=== PATIENT | male | born 1985 | race Caucasian/White ===

== ENCOUNTER 2017-09-10 14:07 | Emergency (ER) | payer OTHER ==
[~2017-09-10] VITALS: Ht 180.3 cm; Wt 97.5 kg
[~2017-09-10 14:07] MED LIST: HYDROCODONE-AP1 EAC6 PO; IBUPROFEN 800800 M1 PO; PENICILLIN V P500 MG PO
[2017-09-10 14:34] VITALS: BP 123/82
== END 2017-09-10 14:36 | disposition home or self-care (01) ==
LOC: M.ERS 14:07
DX: R22.0 Localized swelling, mass and lump, head (principal); T63.441A Toxic effect of venom of bees, accidental (unintentional), initial encounter; Y92.89 Other specified places as the place of occurrence of the external cause

== ENCOUNTER 2017-12-14 20:55 | Emergency (ER) | payer OTHER ==
[~2017-12-14] VITALS: Ht 180.3 cm; Wt 90.7 kg
[2017-12-14 20:58] VITALS: BP 143/81
[2017-12-14] MEDS ORDERED: ERYTHROMYCIN E3.5 G2 OPHTHALMIC (21:14)
== END 2017-12-14 21:26 | disposition home or self-care (01) ==
LOC: M.ERS 20:55
DX: H11.32 Conjunctival hemorrhage, left eye (principal); S05.02XA Injury of conjunctiva and corneal abrasion without foreign body, left eye, initial encounter; W22.8XXA Striking against or struck by other objects, initial encounter; Y93.89 Activity, other specified; Y92.89 Other specified places as the place of occurrence of the external cause; Y99.8 Other external cause status

== ENCOUNTER 2018-05-08 07:17 | Emergency (ER) | payer OTHER ==
[~2018-05-08] VITALS: Ht 348 cm; Wt 102.1 kg
[~2018-05-08 07:17] MED LIST changes: +ERYTHROMYCIN E3.5 G2 OPHTHALMIC
[2018-05-08] MEDS ORDERED: CYCLOBENZAPRINE5 MG PO (07:53)
[2018-05-08] MEDS ORDERED: HYDROCODON-ACE1 EAC7 PO (07:53)
[2018-05-08] MEDS ORDERED: NAPROSYN500 MG PO (07:53)
[2018-05-08 08:05] VITALS: BP 138/97
== END 2018-05-08 08:06 | disposition home or self-care (01) ==
LOC: M.ERS 07:17
DX: M94.0 Chondrocostal junction syndrome [Tietze] (principal)

== ENCOUNTER 2018-07-29 19:48 | Emergency (ER) | payer OTHER ==
[~2018-07-29] VITALS: Ht 182.9 cm; Wt 97.5 kg
[~2018-07-29 19:48] MED LIST changes: +CYCLOBENZAPRINE5 MG PO; +HYDROCODON-ACE1 EAC7 PO; +NAPROSYN500 MG PO
[2018-07-29] MEDS ORDERED: KEFLEX500 M1 PO (20:23)
[2018-07-29 20:29] VITALS: BP 119/76
== END 2018-07-29 20:32 | disposition home or self-care (01) ==
LOC: M.ERS 19:48
DX: S30.860A Insect bite (nonvenomous) of lower back and pelvis, initial encounter (principal); F17.200 Nicotine dependence, unspecified, uncomplicated; W57.XXXA Bitten or stung by nonvenomous insect and other nonvenomous arthropods, initial encounter; Y92.89 Other specified places as the place of occurrence of the external cause; Y93.89 Activity, other specified; Y99.8 Other external cause status

== ENCOUNTER 2018-12-09 00:59 | Emergency (ER) | payer OTHER ==
[~2018-12-09] VITALS: Ht 180.3 cm; Wt 99.8 kg
[~2018-12-09 00:59] MED LIST changes: +KEFLEX500 M1 PO
[2018-12-09] MEDS ORDERED: IBUPROFEN 800800 MG PO (02:18)
[2018-12-09] MEDS ORDERED: TYLENOL WITH CO1 TA1 PO (02:18)
[2018-12-09] MEDS ORDERED: PENICILLIN V P500 MG PO (02:18)
[2018-12-09 02:26] VITALS: BP 142/76
== END 2018-12-09 02:26 | disposition home or self-care (01) ==
LOC: M.ERS 00:59
DX: S02.5XXA Fracture of tooth (traumatic), initial encounter for closed fracture (principal); X58.XXXA Exposure to other specified factors, initial encounter; Y93.9 Activity, unspecified; Y92.89 Other specified places as the place of occurrence of the external cause; Y99.8 Other external cause status

== ENCOUNTER 2019-01-06 21:29 | Emergency (ER) | payer OTHER ==
[~2019-01-06] VITALS: Ht 180.3 cm; Wt 95.3 kg
[~2019-01-06 21:29] MED LIST changes: +IBUPROFEN 800800 MG PO; +TYLENOL WITH CO1 TA1 PO
[2019-01-06 22:01] LABS: ABSOLUTE EOSINOPHILS 0.2 thou/uL (0.0-0.7); ABSOLUTE LYMPHOCYTES 3.5 thou/uL (0.8-5.3); ABSOLUTE MONOCYTES 0.9 thou/uL (0.0-1.2); ABSOLUTE NEUTROPHILS 6.4 thou/uL (1.6-8.1); BASOPHILS 0.1 %; EOSINOPHILS 1.8 %; HEMOGLOBIN 16.1 gm/dL (14.0-18.0); LYMPHOCYTES 31.4 %; MCH 31.2 pg (26.0-34.0); MCHC 35.1 g/dL (28.0-37.0); MCV 89.1 fL (80.0-100.0); MONOCYTES 8.2 %; MPV 8.4 fl. (7.2-11.1); NUCLEATED RBCS 0 /100WBC; PLATELET COUNT* 281 thou/uL (150-400); POLYS 58.5 %; RBC 5.16 mil/uL (4.50-6.00); RDW-CV 13.5 % (10.5-14.5)
[2019-01-06 22:07] LABS: CALCIUM 8.8 mg/dL (8.5-10.1); POTASSIUM 4.1 mmol/L (3.5-5.1)
[2019-01-06 22:11] LABS: TOTAL BILIRUBIN 0.3 mg/dL (<0.1-1.0); TOTAL PROTEIN 7.6 g/dL (6.4-8.2)
[2019-01-06] MEDS ORDERED: MOTION RELIEF25 MG PO (22:36)
[2019-01-06 22:43] VITALS: BP 150/93
--- NOTE | 2019-01-07 09:55 | EKG ---
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[place] : 1985 Requested By: Tamica Jules Order Number: [id number] MD: Rashad Aguilera Measurements Intervals Cobb Rate: 83 P: 41 MT: 143 QRS: 38 QRSD: 109 T: 26 QT: 409 QTc: 481 Interpretive Statements Sinus rhythm Borderline prolonged QT interval Baseline wander in lead(s) V6 No previous ECG available for comparison Electronically Signed On 01-07-2019 9:55:20 EATING DISORDER PSYCHOLOGIST by Rashad Aguilera [email or web address] <ELECTRONICALLY SIGNED> By: Rashad Aguilera MD, [facility] 01/07/19 0955 [id number] 08 Rashad Aguilera MD, FACC /EPI
== END 2019-01-06 22:45 | disposition home or self-care (01) ==
LOC: M.ERS 21:29
PROVIDERS: Nurse Practitioner Family
DX: S06.0X0A Concussion without loss of consciousness, initial encounter (principal); Y04.2XXA Assault by strike against or bumped into by another person, initial encounter; Y92.89 Other specified places as the place of occurrence of the external cause; Y93.89 Activity, other specified; Y99.8 Other external cause status

== ENCOUNTER 2019-03-29 11:15 | Emergency (ER) | payer OTHER ==
[~2019-03-29] VITALS: Ht 180.3 cm; Wt 99.8 kg
[~2019-03-29 11:15] MED LIST changes: +MOTION RELIEF25 MG PO
[2019-03-29 11:49] VITALS: BP 119/89
== END 2019-03-29 11:50 | disposition home or self-care (01) ==
LOC: M.ERS 11:15
DX: F07.81 Postconcussional syndrome (principal)

== ENCOUNTER 2019-10-08 14:35 | Emergency (ER) | payer OTHER ==
[~2019-10-08] VITALS: Ht 180.3 cm; Wt 97.5 kg
[2019-10-08] MEDS ORDERED: FLEXERIL PO (14:57)
[2019-10-08 15:08] VITALS: BP 124/80
== END 2019-10-08 15:09 | disposition home or self-care (01) ==
LOC: M.ERS 14:35
DX: S39.012A Strain of muscle, fascia and tendon of lower back, initial encounter (principal); M54.31 Sciatica, right side; X50.9XXA Other and unspecified overexertion or strenuous movements or postures, initial encounter; Y93.89 Activity, other specified; Y92.89 Other specified places as the place of occurrence of the external cause; Y99.8 Other external cause status

== ENCOUNTER 2020-04-24 16:00 | Emergency (ER) | payer OTHER ==
[~2020-04-24] VITALS: Ht 182.9 cm; Wt 99.8 kg
[~2020-04-24 16:00] MED LIST changes: +FLEXERIL PO
[2020-04-24] MEDS ORDERED: NORCO5 PO (17:09)
[2020-04-24] MEDS ORDERED: AUGMENTIN 875-1 EACH PO (17:09)
[2020-04-24 17:20] VITALS: BP 128/68
== END 2020-04-24 17:21 | disposition home or self-care (01) ==
LOC: M.ERS 16:00
DX: S61.232A Puncture wound without foreign body of right middle finger without damage to nail, initial encounter (principal); S60.511A Abrasion of right hand, initial encounter; S60.512A Abrasion of left hand, initial encounter; W55.01XA Bitten by cat, initial encounter; Y93.89 Activity, other specified; Y92.89 Other specified places as the place of occurrence of the external cause; Y99.8 Other external cause status

== ENCOUNTER 2020-04-26 02:25 | Inpatient (IN) | payer OTHER ==
[~2020-04-26] VITALS: Ht 182.9 cm; Wt 116.4 kg
[~2020-04-26 02:25] MED LIST changes: +AUGMENTIN 875-1 EACH PO; +NORCO5 PO
[2020-04-26 02:30] VITALS: BP 140/91
[2020-04-26 03:14] LABS: ABSOLUTE BASOPHILS 0.1 thou/uL (0.0-0.2); ABSOLUTE EOSINOPHILS 0.2 thou/uL (0.0-0.7); ABSOLUTE LYMPHOCYTES 3.4 thou/uL (0.8-5.3); ABSOLUTE NEUTROPHILS 5.9 thou/uL (1.6-8.1); EOSINOPHILS 1.5 %; HEMATOCRIT 45.3 % (42.0-52.0); HEMOGLOBIN 15.6 gm/dL (14.0-18.0); LYMPHOCYTES 32.5 %; MCH 31.5 pg (26.0-34.0); MCHC 34.4 g/dL (28.0-37.0); MCV 91.5 fL (80.0-100.0); MPV 8.3 fl. (7.2-11.1); NUCLEATED RBCS 0 /100WBC; PLATELET COUNT* 243 thou/uL (150-400); RBC 4.95 mil/uL (4.50-6.00); RDW-CV 13.4 % (10.5-14.5); WBC 10.6 thou/uL (4.0-11.0)
[2020-04-26 03:24] LABS: CALCIUM 8.9 mg/dL (8.5-10.1); POTASSIUM 3.2 mmol/L (3.5-5.1)
[2020-04-26 04:58] VITALS: BP 132/88
[2020-04-26 05:18] VITALS: BP 128/87
--- NOTE | 2020-04-26 07:54 | NUR ---
ASSUMED CARE OF PT AT 0509. PT A&O, VSS ON ROOM AIR, IV SALINE LOCKED, PT STATES PAIN 4/10. NO PAIN MEDS ON ORDER, PT STATES HE DOES NOT NEED ANY PAIN MED AT THIS TIME.
[2020-04-26 08:10] VITALS: BP 133/91
--- NOTE | 2020-04-26 15:00 | NUR ---
PT.ALERT AND ORIENTED. STATED HE LIVES WITH HIS S.O. AND CHILDREN. HE IS INDEPENDENT. NO USE OF DME OR HX OF HH. HOPES TO GO HOME SOON. CONTINUES ON IV ANTIBIOTICS. CM WILL FOLLOW.
[2020-04-26 16:52] VITALS: BP 125/71
--- NOTE | 2020-04-26 19:04 | NUR ---
PT ALERT AND ORIENTED. PT GIVEN ABX FOR HAND INFECTION. PAIN MEDS GIVEN. PT UP WITHOUT ASSIST. SWELLING HAS GONE DOWN IN RIGHT HAND. GIRLFRIEND AT BEDSIDE. WILL CONTINUE TO MONITOR.
[2020-04-26 20:20] VITALS: BP 158/80
[2020-04-27] VITALS: BP 130/88
--- NOTE | 2020-04-27 03:31 | NUR ---
PT AO X4 LYING IN BED AT TIME OF ASSESSMENT. VSS. PT DENIES PAIN AND STATES SINCE GETTING A COUPLE DOSES OF ANTIBIOTICS HE CAN ALREADY TELL THE REDNESS AND SWELLING IS LEAVING THE RT HAND. HE WAS HAVING A THROBBING PAIN AND WAS UNABLE TO MOVE FINGER OR HOLD HIS PHONE WITHOUT PAIN AND PRESSURE, WHICH HE IS NOW ABLE TO DO WITHOUT PAIN. PT HAS BEEN UP AMBULATING IN ROOM AND TO TOILET AND DECIDED TO DECLINE LOVENOX HE IS UP MOVING AROUND. HE IS HOPEFUL FOR DISHCARGE TODAY.
[2020-04-27 04:32] LABS: HEMATOCRIT 43.8 % (42.0-52.0); HEMOGLOBIN 14.9 gm/dL (14.0-18.0); MCH 30.7 pg (26.0-34.0); MCHC 34.1 g/dL (28.0-37.0); MCV 90.2 fL (80.0-100.0); MPV 8.1 fl. (7.2-11.1); RBC 4.86 mil/uL (4.50-6.00); RDW-CV 13.2 % (10.5-14.5); WBC 9.1 thou/uL (4.0-11.0)
[2020-04-27 04:40] LABS: ALBUMIN 3.2 g/dL (3.4-5.0); CALCIUM 8.6 mg/dL (8.5-10.1); MAGNESIUM 2.1 mg/dL (1.8-2.4); POTASSIUM 3.7 mmol/L (3.5-5.1); TOTAL BILIRUBIN 0.5 mg/dL (<0.1-1.0); TOTAL PROTEIN 7.1 g/dL (6.4-8.2)
[2020-04-27 08:21] VITALS: BP 132/90
--- NOTE | 2020-04-27 10:00 | NUR ---
PT IS ALERT AND ORIENTED RIGHT HAND STILL SWOLLEN AND RED WITH DISCOMFORT GAVE NORCO WHICH HELPS CONT WITH IV ABT WOULD LIKE AT LEAST 48 HOURS OF THIS BEFORE DC HOME PT IS UP AD BARRY HRR NO OTHER CONCERNS AT THIS TIME
--- NOTE | 2020-04-27 15:14 | NUR ---
PT ROUNDS: PT TO CONT WITH [facility] FOR IV ABX TX.
[2020-04-27 16:30] VITALS: BP 120/77
[2020-04-27 21:10] VITALS: BP 138/83
--- NOTE | 2020-04-28 05:21 | NUR ---
PATIENT HAS RESTED WELL DURING THE NIGHT. VSS ON RA. NO C/O PAIN. MEDICATIONS GIVEN ORDERED AND CHARTED. IV IN LEFT FOREARM-SL. IV ABT GIVEN ORDERED WITHOUT ANY ADVERSE SIDE EFFECTS NOTED. PATIENT INSTRUCTED TO USE CALL LIGHT WHEN NEEDING ASSISTANCE. HOURLY ROUNDS MADE. WILL CONTINUE WITH PLAN OF CARE AND NURSING TO MONITOR.
[2020-04-28 07:40] VITALS: BP 126/82
--- NOTE | 2020-04-28 12:33 | NUR ---
Pt to dc later today, pending CT of hand. Med Assist screened, Pt does not qualify for [facility]. No needs.
[2020-04-28 15:30] VITALS: BP 126/82
[2020-04-28 16:12] VITALS: BP 137/80
--- NOTE | 2020-04-28 17:59 | NUR ---
Pt remained A&O x4 for entire shift. Vital signs stable. Pt pleasant with staff. Pt given meds per APR. Picture of wound taken before dishcharge. IV discontinued. Pt walked with steady gait out of hospital with his fiance.
[2020-04-28 18:08] VITALS: BP 126/82
== END 2020-04-28 16:30 | disposition home or self-care (01) | DRG 603 ==
LOC: M.ERS 02:25 → M.TBA-ER 04:03 → M.ORTHSURG 05:09
PROVIDERS: Emergency Medicine; Internal Medicine; ADMIT Internal Medicine; ATTEND Internal Medicine
DX: L03.011 Cellulitis of right finger (principal); L02.511 Cutaneous abscess of right hand; M00.9 Pyogenic arthritis, unspecified; S61.451A Open bite of right hand, initial encounter; Z20.822 Contact with and (suspected) exposure to COVID-19; W55.01XA Bitten by cat, initial encounter; Y93.89 Activity, other specified; Y92.89 Other specified places as the place of occurrence of the external cause; Y99.8 Other external cause status; Z79.899 Other long term (current) drug therapy